=== PATIENT | female | born 1990 | race Caucasian/White ===

== ENCOUNTER 2019-06-26 18:31 | Emergency (ER) | payer OTHER, SELFPAY ==
[2019-06-26 18:36] VITALS: BP 127/89; PULSE 79; RESP 18; TEMP 36.6; O2SAT 100
[2019-06-26] MEDS: KETOROLAC 60 MG/2 ML VIAL IM (18:55)
[2019-06-26 19:31] LABS: Influenza A - CEPHEID Flu A NEGATIVE (NEGATIVE); Influenza B - CEPHEID Flu B POSITIVE (NEGATIVE)
--- NOTE | 2019-06-26 19:53 | ED_ITS ---
HPI - URI/Sore Throat <SRI Jamison - Last Filed: 06/26/19 20:13> General Chief Complaint: Upper Respiratory Symptoms Stated Complaint: states has Influenza, now pain in neck. Time Seen by Provider: 06/26/19 18:36 Source: patient Mode of arrival: Family Vehicle Limitations: no limitations History of Present Illness HPI Narrative: The patient is a 28-year-old female nonsmoker who denies pertinent medical history presents with a chief complaint of a sore throat/neck. She states she has had cough cold flu symptoms for the past few days. Her daughter tested positive for flu B. she denies any chest pain or shortness of breath. She is concerned about a right-sided peritonsillar abscess and states that her pain is mostly in her tonsil. She has not had fevers for a few days, d enies any nausea vomiting or diarrhea. Does complain of general malaise and fatigue. She does complain of some right ear pain, no left ear pain Related Data Home Medications Medication Instructions Recorded Confirmed CALCIUM CARBONATE 500 mg PO PRN #0 02/25/11 VIT#96/FERROUS FUM/FA 1 tab PO #0 02/25/11 ( Tablet) Previous Rx's Medication Instructions Recorded IBUPROFEN (#MOTRIN) 600 mg PO QID #30 09/30/11 Oxycodone/Acetaminophen (Percocet 0 tab PO Q4HP #30 09/30/11 5-325 MG Tablet) fluconazole [Diflucan] 150 mg PO QDAY #1 10/16/12 omeprazole 20 mg PO QDAY@0600 #30 10/16/12 Oxycodone/Acetaminophen (Percocet 0 tab PO Q4H PRN #30 01/23/13 5-325 MG Tablet) ibuprofen 600 mg PO Q6HP #30 01/23/13 ketorolac 10 mg PO TID PRN #14 tab 06/26/19 Review of Systems <SRI Jamison - Last Filed: 06/26/19 20:13> Review of Systems Narrative: GENERAL: See HPI HEENT: See HPI RESPIRATORY: Denies dyspnea, cough, wheezing, hemoptysis, sputum. CARDIOVASCULAR: Denies chest pain, palpitations, orthopnea, edema, GASTROINTESTINAL: Denies nausea, vomiting, abdominal pain, diarrhea, constipation, melena. : Denies dysuria, frequency, incontinence, hematuria, urinary retention. MUSCULOSKELETAL: denies weakness, joint pain, or bony pain SKIN: Denies rash, skin lesions, or other NEUROLOGIC: Denies weakness, headache, numbness, change in speech, confusion, seizures, incoordination. PSYCHIATRIC: No concerning psychosocial issues. 12 point review of systems is negative except for those stated above Patient History <SRI Jamison - Last Filed: 06/26/19 20:13> Surgical History Status post tubal ligation Social History Smoking Status: Never smoker Smoking Status: Never smoker alcohol intake frequency: a few times a month Alcohol type: wine Substance Use Type: does not use Exam <SRI Jamison - Last Filed: 06/26/19 20:13> Narrative Exam Narrative: GENERAL: This is a well-nourished, well-developed patient, in no acute distress HEAD: Atraumatic. Normocephalic. No temporal or scalp tenderness. EYES: Pupils equal round and reactive. Extraocular motions intact. No scleral icterus. No injection or drainage. ENT: Nose without bleeding, purulent drainage or septal hematoma. Throat without erythema, tonsillar hypertrophy or exudate. Uvula midline. Airway patent. Bilateral TMs pearly palacios NECK: Trachea midline. No JVD or lymphadenopathy. Supple, nontender, no meningeal signs. CARDIOVASCULAR: Regular rate and rhythm without murmurs, gallops, or rubs. RESPIRATORY: Clear to auscultation. Breath sounds equal bilaterally. No wheezes, rales, or rhonchi. Occasional dry sounding cough. No increased respiratory effort. No accessory muscle use GASTROINTESTINAL: Abdomen soft, non-tender, nondistended. No hepato- splenomegaly, or palpable masses. No guarding. EXTREMITIES: No clubbing, cyanosis, or edema. No joint tenderness, effusion, or edema noted. BACK: Nontender without deformity or crepitance. No flank tenderness. NEURO: AOx3. SKIN: No rash or erythema on visible skin Initial Vital Signs Initial Vital Signs: Vital Signs Temperature 97.9 F 06/26/19 18:36 Pulse Rate 79 12/25/19 18:36 Respiratory Rate 18 06/26/19 18:36 Blood Pressure 127/89 06/26/19 18:36 Pulse Oximetry 100 06/26/19 18:36 <Piter Mas DO - Last Filed: 06/26/19 23:39> Initial Vital Signs Initial Vital Signs: Vital Signs Temperature 97.9 F 06/26/19 18:36 Pulse Rate 79 06/26/19 18:36 Respiratory Rate 18 06/26/19 18:36 Blood Pressure 127/89 06/26/19 18:36 Pulse Oximetry 100 06/26/19 18:36 Course <SRI Jamison - Last Filed: 06/26/19 20:13> Orders Ordered: ED Orders 06/26/19 18:50 Influenza A & B (PCR) Stat 06/26/19 19:12 Throat Culture Stat Discontinued Medications Ketorolac Tromethamine (Toradol) 60 mg IM NOW ONE Stop: 06/26/19 18:46 Last Admin: 06/26/19 18:55 Dose: 60 mg Documented by: YASMEEN Ketorolac Tromethamine (Toradol 10mg Prepack) 1 bottle MISC SEEINSTR ONE Stop: 06/26/19 20:02 Last Admin: 06/26/19 20:06 Dose: 1 bottle Documented by: YASMEEN Vital Signs Vital signs: Vital Signs - 8 hr 06/26/19 18:36 06/26/19 20:11 Temperature 97.9 F Pulse Rate 79 76 Respiratory Rate 18 18 Blood Pressure 127/89 126/75 Pulse Oximetry 100 98 <Piter Mas DO - Last Filed: 06/26/19 23:39> Orders Ordered: ED Orders 06/26/19 18:50 Influenza A & B (PCR) Stat 06/26/19 19:12 Throat Culture Stat Discontinued Medications Ketorolac Tromethamine (Toradol) 60 mg IM NOW ONE Stop: 06/26/19 18:46 Last Admin: 06/26/19 18:55 Dose: 60 mg Documented by: YASMEEN Ketorolac Tromethamine (Toradol 10mg Prepack) 1 bottle MISC SEEINSTR ONE Stop: 06/26/19 20:02 Last Admin: 06/26/19 20:06 Dose: 1 bottle Documented by: YASMEEN Vital Signs Vital signs: Vital Signs - 8 hr 06/26/19 18:36 06/26/19 20:11 Temperature 97.9 F Pulse Rate 79 76 Respiratory Rate 18 18 Blood Pressure 127/89 126/75 Pulse Oximetry 100 98 MDM - URI/Sore Throat <CATALINA Jamison-BC - Last Filed: 06/26/19 20:13> Lab Data Labs: Lab Results 06/26/19 Range/Units 18:50 Influenza A (RT-PCR) Flu a negative (NEGATIVE) Influenza B (RT-PCR) Flu b positive H (NEGATIVE) Point of Care Testing Rapid Strep A Negative MDM Narrative Medical decision making narrative: The patient is a 28-year-old female who presents with a chief complaint of influenza and right ?tonsil pain.She tests negative for strep, but throat cultures pending at this time. She does test positive for influenza B. she felt much improved with Toradol and requested a prescription. She appears hemodynamically stable, is able to take p.o. fluids, in no acute respiratory distress. I discussed the of throat culture should result in 48-72 hours, encouraged follow-up with primary care physician and co jer back to the emergency department for any acute concerns such as shortness of breath inability keep down fluids etc.. Patient and state understanding of return precautions as well as follow-up care and have no questions or concerns upon discharge. <Piter Mas DO - Last Filed: 06/26/19 23:39> Lab Data Labs: Lab Results 06/26/19 Range/Units 18:50 Influenza A (RT-PCR) Flu a negative (NEGATIVE) Influenza B (RT-PCR) Flu b positive H (NEGATIVE) Point of Care Testing Rapid Strep A Negative Discharge Plan Departure Patient Disposition: Home Clinical Impression: Influenza Pharyngitis Qualifiers: Pharyngitis/tonsillitis etiology: unspecified etiology Qualified Code(s): J02.9 - Acute pharyngitis, unspecified Discharge Date/Time: 06/26/19 20:12 Instructions: DI for Influenza -- Adult, DI for Viral Pharyngitis Activity Restrictions/Additional Instructions: Thank you for trusting us with your care today Your rapid strep came back negative, but a throat culture is pending and should result in 48-72 hours. You tested positive for influenza B today. Unfortunately your out of the window for Tamiflu at this time. I've sent in a prescription of Toradol to [facility]. I have given you a prescription of Toradol. This is an NSAID. Do not combine it with other NSAIDs such as Aleve or ibuprofen. I suggest taking it with some food, as it can irritate your stomach. Please follow-up with primary care provider in the next few days. Please come back to the emergency department for any acute concerns such as inability keep down fluids, shortness of breath etc. Prescriptions: New ketorolac 10 mg tablet 10 mg PO TID PRN (Reason: pain) Qty: 14 RF: 0 No Action CALCIUM CARBONATE 500 mg PO PRN Qty: 0 RF: 0 VIT#96/FERROUS FUM/FA ( Tablet) 1 tab PO Qty: 0 RF: 0 IBUPROFEN (#MOTRIN) 600 mg PO QID Qty: 30 RF: 1 Oxycodone/Acetaminophen (Percocet 5-325 MG Tablet) 0 tab PO Q4HP Qty: 30 RF: 0 fluconazole [Diflucan] 150 MG tablet 150 mg PO QDAY Qty: 1 RF: 3 omeprazole 20 MG capsule,delayed release(DR/EC) 20 mg PO QDAY@0600 Qty: 30 RF: 3 ibuprofen 600 MG tablet 600 mg PO Q6HP Qty: 30 RF: 2 Oxycodone/Acetaminophen (Percocet 5-325 MG Tablet) 0 tab PO Q4H PRN Qty: 30 RF: 0 Referrals: Sharath Gutierrez MD [Primary Care Provider] -
[2019-06-26] MEDS: KETOROLAC 10MG PREPACK 1 BOTTLE MISC (20:06)
[2019-06-26 20:11] VITALS: BP 126/75; PULSE 76; RESP 18; O2SAT 98
== END 2019-06-26 20:12 | disposition home or self-care (01) ==
PROVIDERS: Emergency Provider Nurse Practitioner Family; PCP Family Medicine
DX: J11.1 Influenza due to unidentified influenza virus with other respiratory manifestations (principal)
CPT/HCPCS: 87070; 87077; 87147; 87502; 87880; 96372; 99281; 99283; J1885

== ENCOUNTER → 2021-04-07 08:59 | Outpatient (CLI) | payer OTHER, MEDICAID, SELFPAY ==
[2021-04-07 20:04] LABS: COVID19 - ORCAS (NP or Nasal) Negative (Negative)
== END ==
PROVIDERS: PCP Physician Assistant; Visit Provider Physician Assistant Medical
DX: Z20.822 Contact with and (suspected) exposure to COVID-19 (principal)
CPT/HCPCS: U0003

== ENCOUNTER → 2024-04-10 10:49 | Outpatient (CLI) | payer OTHER, MEDICAID, SELFPAY ==
--- NOTE | 2024-04-10 10:50 | DI.US.S_ITS ---
PROCEDURE: US PELVIC COMPLETE INDICATIONS: irregular menstrual bleeding TECHNIQUE: Real-time scanning was performed of the pelvic organs, with image documentation. Additional endovaginal scanning was necessary due to incomplete visualization of the adnexal and endometrial structures by transabdominal scanning. COMPARISON: Pelvic ultrasound 08/21/2020 FINDINGS: Uterus: Uterus is retroverted and normal in size at 9.4 x 4.1 x 7.0 cm. The myometrium is homogeneous. The endometrium measures 26 mm combined thickness. The endometrium is thickened with increased vascularity and endometrial fluid. There is a right anterior intramural 1.4 x 0.9 x 1.4 cm fibroid. Ovaries: The right ovary measures 2.6 x 1.8 x 2.4 cm, with a calculated ovarian volume of 5.8 cc. The left ovary measures 1.9 x 1.6 x 2.7 cm, with a calculated ovarian volume of 4.4 cc. The ovaries have a normal sonographic appearance. Less than 12 follicles can be seen in each ovary. No adnexal masses are seen. There is a 1.4 x 1.3 x 1.7 cm thick-walled cyst with peripheral hypervascularity, likely representing a corpus luteal cyst. Other: No pathologic free abdominal or pelvic fluid. Nabothian cysts are present at the cervix. IMPRESSION: 1. Re-identified endometrial hyperplasia at 28 mmm with hypervascularity and fluid. Gynecological consultation recommended for further evaluation. 2. Right ovarian 1.7 cm corpus luteal cyst. We strive to produce accurate, complete, and clear reports of imaging services. To assist us in improving patient care, this report was composed using standard report templates and voice recognition software. Therefore, it may contain abnormal punctuation, insertions and/or omissions. Occasional wrong-word or sound-alike substitutions may occur. Though we review the report and make efforts to correct it, we do recommend that the report be read carefully in proper context to recognize any text inaccuracies. Dictated by: Jamel Yeh M.D. on 04/12/2024 at 9:56 Approved by: Jamel Yeh M.D. on 04/12/2024 at 10:13
== END ==
LOC: US 10:50
PROVIDERS: PCP Physician Assistant Medical; Referring Provider Obstetrics & Gynecology; Visit Provider Obstetrics & Gynecology
DX: N92.6 Irregular menstruation, unspecified (principal); N85.00 Endometrial hyperplasia, unspecified; D25.1 Intramural leiomyoma of uterus; N83.11 Corpus luteum cyst of right ovary
CPT/HCPCS: 76856

== ENCOUNTER 2024-06-13 10:38 | Day surgery (SDC) | payer OTHER, MEDICAID, SELFPAY ==
[2024-06-12 08:48] VITALS: BMI 34.0
--- NOTE | 2024-06-13 | PATH_ITS ---
[facility] Accession Number: [id number] No. of containers..03 Tissue . 01 Material submitted: . PART A: endometrium - ENDOMETRIAL SHAVINGS PART B: endocervix - ENDOCERVICAL CURETTINGS PART C: endometrium - ENDOMETRIAL CURETTINGS . 01 Diagnosis: A. ENDOMETRIAL SHAVINGS: Portions of proliferative endometrium; negative for endometrioid intraepithelial neoplasia or malignancy. Fragments of myometrium; negative for significant atypia. . B. ENDOCERVICAL CURETTINGS: Scant endometrial / lower uterine segment tissue fragments and detached strips of glandular epithelium; negative for significant atypia. Please see comment. . C. ENDOMETRIAL CURETTINGS: Portions of proliferative endometrium; negative for endometrioid intraepithelial neoplasia or malignancy. Some endometrial fragments demonstrate prominent vessels, suggestive of polyp, if clinical and imaging studies are concordant. [facility] 06/18/2024 0855 Local . 01 Comment: B. Due to the scant nature of endocervical tissue in this biopsy, it may not be entirely registration representative of this patient's endocervix; additional sampling could be considered, if clinically appropriate. . 01 Electronically signed: . Karly Duran MD, Pathologist NPI- [id number] . 01 Gross description: . A. Received in formalin with two patient identifiers and endometrial shavings, are multiple amaya and brown soft tissue fragments aggregating to 2.7 x 1.8 x 0.7 cm. Filtered and submitted in A1. B. Received in formalin with two patient identifiers and endocervical curettings, are multiple amaya soft tissue fragments admixed with mucohemorrhagic material aggregating to 3.4 x 2.3 x 0.6 cm. Filtered and submitted in B1. C. Received in formalin with two patient identifiers and endometrial curettings, are multiple amaya soft tissue fragments admixed with mucohemorrhagic material aggregating to 4.0 x 2.3 x 0.6 cm. Filtered and submitted in C1-C2. ([id number]) /MRV 06/14/2024 1314 Local . 01 Pathologist provided ICD-10: N92.0 . 01 CPT . 400432, 553670, 302450 Specimen Comment: A courtesy copy of this report has been sent to [phone] Performed at: [address] [address], [place], [place] [id number] MD Franck Mclean MD Phone: [phone]
--- NOTE | 2024-06-13 08:50 | PM.PREOP ---
Pre-operative Note COVID-19 COVID-19 status: Not tested Interval Note History & Physical reviewed/Exam performed by Physician: Yes Changes to H&P: No
[2024-06-13 11:16] VITALS: BP 127/85; PULSE 82; RESP 16; TEMP 36.9; O2SAT 97; BMI 34.0
--- NOTE | 2024-06-13 13:00 | SUR.OPER ---
Lithotomy on padded OR bed, head on pillow, arms secured on padded arm boards at <90 degrees abduction. Legs secured in padded yellow fins stirrups.
--- NOTE | 2024-06-13 13:23 | PM.GYNOP.1 ---
Operative Date/Time/Diagnoses Date of procedure: 06/13/24 Time of procedure: 12:45 Pre-op diagnosis: Intermenstrual spotting Endometrial thickening on ultrasound Post-op diagnosis: same Procedure & Clinicians Procedure: Procedures Operation Date: 06/13/24 12:45 Actual Procedure Side Surgeon p Hysteroscopy with Bx's & D&C Gilbert De León MD Indications: Diandra is a 33-year-old 4 para 3, LMP 04/13/2024, who presents with a multiyear history of intermenstrual spotting. She was evaluated in 2020 for these complaints and apparently had an ultrasound which showed endometrial thickening at that time. According to the patient, she believes she had an endometrial biopsy performed but no records are available for review. No other the evaluation performed and her intermenstrual spotting has continued. 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 Her last Pap was about 2 years ago. Recent pelvic ultrasound performed 04/10/2024 shows: FINDINGS: Uterus: Uterus is retroverted and normal in size at 9.4 x 4.1 x 7.0 cm. The myometrium is homogeneous. The endometrium measures 26 mm combined thickness. The endometrium is thickened with increased vascularity and endometrial fluid. There is a right anterior intramural 1.4 x 0.9 x 1.4 cm fibroid. Ovaries: The right ovary measures 2.6 x 1.8 x 2.4 cm, with a calculated ovarian volume of 5.8 cc. The left ovary measures 1.9 x 1.6 x 2.7 cm, with a calculated ovarian volume of 4.4 cc. The ovaries have a normal sonographic appearance. Less than 12 follicles can be seen in each ovary. No adnexal masses are seen. There is a 1.4 x 1.3 x 1.7 cm thick-walled cyst with peripheral hypervascularity, likely representing a corpus luteal cyst. Other: No pathologic free abdominal or pelvic fluid. Nabothian cysts are present at the cervix. IMPRESSION: 1. Re-identified endometrial hyperplasia at 28 mmm with hypervascularity and fluid. Gynecological consultation recommended for further evaluation. 2. Right ovarian 1.7 cm corpus luteal cyst. We had an extended discussion regarding potential causes of both endometrial thickening as well as intermenstrual spotting. We talked about the possibility of expectant management which is not in her best interest and not something she wishes to consider. We also talked about the possibility of repeating an endometrial biopsy which would be potentially diagnostic but non therapeutic. Instead patient wishes to proceed with hysteroscopy, probable endometrial biopsies, and D&C. She presents today for her scheduled surgery. Surgeon: Gilbert De León Anesthesia Type: General Operative Notes Findings: There is a 2.5 cm Miya's duct cyst in the right sidewall of the mid vagina. The cyst is soft and noninflamed. The uterus sounds to 8 cm and the uterine cavity itself is unremarkable with both ostia easily visualized. The endometrium is diffusely pseudo-polypoid therefore endometrial shavings were taken throughout the endometrial cavity prior to curettage and submitted as a separate pathologic specimen. No other abnormalities were noted. Closure Type: not applicable Specimen(s): endometrial curettings and other (Endocervical curettings, myometrial shavings) Estimated blood loss (mL): 20 Blood products transfused: none Procedure in detail: With the patient under general anesthesia in the modified dorsal lithotomy position, the perineum, vagina, and lower abdomen were prepped and draped in the usual fashion for hysteroscopy with endometrial ablation. A pre-surgical safety time-out was then taken in accordance with [facility] Main OR protocols. A bivalve speculum was inserted in the vagina and the cervix visualized. The anterior lip of the cervix was grasped with a single-tooth tenaculum and the endocervical canal was then dilated to 6 mm diameter. Hysteroscope was placed through the endocervical canal into the endometrial cavity and the cavity was visualized with the findings as noted above. There were no localized abnormalities within the endometrial cavity but because of the diffuse pseudo polypoid changes of the endometrial surface, resection of the all those areas with MyoSure Lite was accomplished easily and that specimen was submitted separately as endometrial shavings. The hysteroscope was then withdrawn and a fractional dilation and curettage was accomplished with separate pathologic specimen submitted for the endometrial and endocervical curettings. The tenaculum was then removed from the anterior lip of the cervix and no bleeding was encountered. The speculum was then removed from the vagina and the patient awakened from anesthesia. She was then transferred to the PACU for a period of observation and recovery having tolerated the procedure well. Hysteroscopy I&O differential 260 cc sterile saline. Complications: none Post-operative Condition: stable Disposition: PACU Plan for aftercare: Routine post-op care.
[2024-06-13 13:25] VITALS: BP 118/81; PULSE 81; RESP 17; TEMP 36.6; O2SAT 100
[2024-06-13 13:30] VITALS: BP 117/81; PULSE 71; RESP 22; O2SAT 99
[2024-06-13 13:36] VITALS: BP 124/80; PULSE 80; RESP 24; O2SAT 99
[2024-06-13 13:40] VITALS: BP 118/80; PULSE 71; RESP 15; O2SAT 99
[2024-06-13] MEDS: ACETAMINOPHEN 325 MG TABLET 975 MG PO (13:41)
[2024-06-13 13:46] VITALS: BP 119/84; PULSE 71; RESP 15; O2SAT 98
== END 2024-06-13 14:07 | disposition home or self-care (01) ==
PROVIDERS: PCP Physician Assistant Medical; Referring Provider Obstetrics & Gynecology; Visit Provider Obstetrics & Gynecology
PROC: 0UDB8ZZ Extraction of Endometrium, Via Natural or Artificial Opening Endoscopic (ICD-10-PCS; CPT 58558; principal; 2024-06-13 12:45)
DX: N92.0 Excessive and frequent menstruation with regular cycle (principal); Q52.4 Other congenital malformations of vagina
CPT/HCPCS: 58558; 81025; J1100; J1885; J2250; J2405; J2704; J3010

== ENCOUNTER → 2025-05-07 12:53 | Outpatient (CLI) | payer OTHER, SELFPAY ==
--- NOTE | 2025-05-07 12:54 | DI.US.S_ITS ---
PROCEDURE: US PELVIC COMPLETE
== END ==
LOC: US 12:54
PROVIDERS: PCP Physician Assistant Medical; Referring Provider Obstetrics & Gynecology; Visit Provider Obstetrics & Gynecology
DX: N83.292 Other ovarian cyst, left side (principal); R10.20 Pelvic and perineal pain unspecified side; R93.89 Abnormal findings on diagnostic imaging of other specified body structures
CPT/HCPCS: 76856